=== PATIENT | female | born 1960 | race Caucasian/White ===

== ENCOUNTER → 2019-12-08 10:57 | Outpatient (BNVA) | payer SELFPAY | PROVIDERS: Visit Provider Nurse Practitioner Family | DX: S99.922A Unspecified injury of left foot, initial encounter (principal); V09.20XA Pedestrian injured in traffic accident involving unspecified motor vehicles, initial encounter; M79.672 Pain in left foot; M79.89 Other specified soft tissue disorders | CPT/HCPCS: 73610; 73630 ==